=== PATIENT | female | born 1970 | race Caucasian/White ===

== ENCOUNTER 2018-08-18 17:55 | Emergency (ER) | payer SELFPAY ==
[~2018-08-18] VITALS: Ht 160 cm; Wt 97.9 kg
[2018-08-18 18:17] VITALS: BP 147/73; PULSE 91; RESP 18; Ht 160 cm; Wt 97.9 kg
== END 2018-08-18 23:13 | disposition left against medical advice (07) ==
LOC: FTE 17:55
DX: Z53.21 Procedure and treatment not carried out due to patient leaving prior to being seen by health care provider (principal)